=== PATIENT | male | born 1935 | race African-American/Black ===

== ENCOUNTER 2018-04-12 10:49 | Inpatient (IN) | payer OTHER ==
[~2018-04-12] VITALS: Ht 167.6 cm; Wt 85.3 kg
[2018-04-12] MEDS ORDERED: CEFTRIAXONE 1 G PREMIX 50 ML IV ONE ×2 (12:45→15:30)
[2018-04-12 15:35] LABS: BASOPHILS % 0.3 % (0.0-2.0); EOSINOPHILS % 0.9 % (0.0-5.0); HEMATOCRIT. 36.9 % (42.0-52.0); HEMOGLOBIN. 12.1 g/dL (14.0-18.0); MEAN CORPUSCULAR HEMOGLOBIN 27.5 pg (28.0-32.0); MEAN CORPUSCULAR VOLUME 83.8 fL (80.0-94.0); MONOCYTES % 8.3 % (2.0-8.0); NEUTROPHILS % 61.5 % (40.0-76.0); PLATELET 118 x1000/uL (130-400); RED CELL DISTRIBUTION WIDTH 15.1 % (11.6-14.6)
[2018-04-12 15:37] LABS: CHLORIDE 115 mEq/L (98-107)
[2018-04-12 15:42] LABS: INR 1.1; PARTIAL THROMBOPLASTIN TIME 26.5 sec (23.4-31.0); PROTHROMBIN TIME 10.7 sec (9.1-11.1)
[2018-04-12 15:43] LABS: CREATINE KINASE 436 IU/L (39-308)
[2018-04-12 15:47] LABS: CREATINE KINASE MB FRACTION 6.4 ng/mL (0.5-3.6)
[2018-04-12 17:03] LABS: CLARITY URINE CLOUDY (CLEAR); COLOR URINE YELLOW (YELLOW); KETONES URINE TRACE (NEGATIVE); LEUKOCYTE ESTERASE URINE 3+ (NEGATIVE); NITRITE URINE NEGATIVE (NEGATIVE); OCCULT BLOOD URINE 1+ (NEGATIVE); PROTEIN URINE 2+ (NEGATIVE); SPECIFIC GRAVITY URINE 1.013 (1.005-1.030); UROBILINOGEN URINE 0.2 E.U./dL (0.2-1.0)
[2018-04-12] MEDS ORDERED: ONDANSETRON HCL 4MG/2ML INJ IV PRN (17:45)
[2018-04-12] MEDS ORDERED: ACETAMINOPHEN 650MG SUPP PR PRN (17:45)
[2018-04-12] MEDS ORDERED: DIPHENHYDRAMINE 50MG/ML VIAL IV PRN (17:45)
[2018-04-12] MEDS ORDERED: IPRATROPIUM/ALBUTEROL 0.5-3(2.5)MG/3ML NEB INH PRN (17:45)
[2018-04-12] MEDS ORDERED: MAGNESIUM/ALUMINUM HYDROXIDE/SIMETHICONE 30ML UDC PO PRN (17:45)
[2018-04-12] MEDS ORDERED: HYDROCODONE/ACETAMINOPHEN 5/325MG TABLET PO PRN (17:45)
[2018-04-12] MEDS ORDERED: ACETAMINOPHEN 325MG TABLET PO PRN (17:45)
[2018-04-12 19:15] VITALS: BP 179/97
[2018-04-12 20:00] VITALS: BP 179/97
[2018-04-12] MEDS ORDERED: NA PHOS,M-B/NA PHOS,DI-BA ENEMA 118ML PR PRN (21:00)
[2018-04-12] MEDS: ENOXAPARIN 40MG/0.4ML SYR SUBCUT SCH (21:49)
[2018-04-12] MEDS: CLONIDINE 0.1MG TABLET PO PRN (21:49)
[2018-04-12] MEDS: DEXT 5%/0.45% NACL 1000ML 1,000 ML IV SCH (21:50)
[2018-04-13] VITALS: BP 122/70
[2018-04-13 07:42] LABS: BASOPHILS % 0.7 % (0.0-2.0); EOSINOPHILS % 2.1 % (0.0-5.0); HEMATOCRIT. 35.6 % (42.0-52.0); HEMOGLOBIN. 11.8 g/dL (14.0-18.0); LYMPHOCYTES % 37.3 % (20.0-50.0); MEAN CORPUSCULAR HEMOGLOBIN 27.5 pg (28.0-32.0); MEAN CORPUSCULAR VOLUME 83.3 fL (80.0-94.0); MEAN PLATELET VOLUME 8.2 fl (7.4-10.4); MONOCYTES % 9.1 % (2.0-8.0); NEUTROPHILS % 50.8 % (40.0-76.0); PLATELET 115 x1000/uL (130-400); RED BLOOD CELL COUNT 4.28 mill/uL (4.7-6.1); RED CELL DISTRIBUTION WIDTH 14.9 % (11.6-14.6)
[2018-04-13 08:00] VITALS: BP 178/78
[2018-04-13] MEDS: CLONIDINE 0.1MG TABLET PO PRN (08:06)
[2018-04-13 09:17] LABS: CHLORIDE 114 mEq/L (98-107)
[2018-04-13 09:27] LABS: LDL CHOLESTEROL 78 mg/dL (5-100)
[2018-04-13 09:28] LABS: T4 FREE 0.97 ng/dL (0.76-1.46)
[2018-04-13 09:47] LABS: HDL CHOLESTEROL 46 mg/dL (40-59)
[2018-04-13 12:00] VITALS: BP_SYST 150
[2018-04-13] MEDS ORDERED: CEFTRIAXONE 1 G PREMIX 50 ML IV SCH (13:00)
[2018-04-13] MEDS: DEXT 5%/0.45% NACL 1000ML 1,000 ML IV SCH (15:30)
[2018-04-13] MEDS ORDERED: LISI-604 MT (15:32)
[2018-04-13] MEDS ORDERED: TERA10CA4 MT (15:32)
[2018-04-13] MEDS ORDERED: IBUP-2030 MT (15:32)
[2018-04-13] MEDS ORDERED: LEVO75TA7 MT (15:32)
[2018-04-13] MEDS ORDERED: SIMV40TA5 MT (15:32)
[2018-04-13] MEDS ORDERED: FINA5TAB11 MT (15:32)
[2018-04-13] MEDS: FINASTERIDE 5MG TABLET PO SCH (15:42)
[2018-04-13 16:00] VITALS: BP 137/65
[2018-04-13 20:00] VITALS: BP_SYST 139; BP_SYST 163; BP_DIAS 55; BP_DIAS 74
[2018-04-13] MEDS: ATORVASTATIN CALCIUM 10MG TABLET PO SCH (21:00)
[2018-04-13] MEDS: TERAZOSIN HCL 5MG CAPSULE PO SCH (21:00)
[2018-04-13] MEDS: ENOXAPARIN 40MG/0.4ML SYR SUBCUT SCH (21:00)
[2018-04-14] VITALS (7 sets, daily range): BP systolic 140–154; BP diastolic 56–84
[2018-04-14] MEDS ORDERED: LEVOTHYROXINE SODIUM 75MCG TABLET PO SCH (07:10)
[2018-04-14] MEDS: FINASTERIDE 5MG TABLET PO SCH (08:44)
[2018-04-14] MEDS ORDERED: LISINOPRIL 20MG TABLET PO SCH (09:00)
[2018-04-14] MEDS: DEXT 5%/0.45% NACL 1000ML 1,000 ML IV SCH ×2 (11:30→14:41)
[2018-04-14] MEDS ORDERED: CEFTRIAXONE 1 G PREMIX 50 ML IV SCH (13:00)
[2018-04-14 16:19] LABS: HEMATOCRIT 36.5 % (42.0-52.0); MEAN CORPUSCULAR HEMOGLOBIN 27.6 pg (28.0-32.0); PLATELET 120 x1000/uL (130-400); RED BLOOD CELL COUNT 4.34 mill/uL (4.7-6.1); RED CELL DISTRIBUTION WIDTH 14.8 % (11.6-14.6)
[2018-04-14 16:27] LABS: CHLORIDE 111 mEq/L (98-107)
[2018-04-14] MEDS ORDERED: LEVOFLOXACIN 500MG TABLET PO SCH (20:00)
[2018-04-14] MEDS: ATORVASTATIN CALCIUM 10MG TABLET PO SCH (20:17)
[2018-04-14] MEDS: TERAZOSIN HCL 5MG CAPSULE PO SCH (20:17)
[2018-04-14] MEDS: ENOXAPARIN 40MG/0.4ML SYR SUBCUT SCH (20:18)
== END 2018-04-14 22:10 | DRG 291 ==
LOC: ER 10:49 → EDBEDREQSVC 16:23 → EDBEDREQ 16:23 → 8WST 16:23 → EDBEDREQ 16:26 → EDBEDREQSVC 16:26 → EDBEDREQ 16:27 → ENRESERV 16:29
PROVIDERS: ADMIT Internal Medicine; ATTEND Internal Medicine
DX: I13.0 Hypertensive heart and chronic kidney disease with heart failure and stage 1 through stage 4 chronic kidney disease, or unspecified chronic kidney disease (principal); G93.41 Metabolic encephalopathy; I50.43 Acute on chronic combined systolic (congestive) and diastolic (congestive) heart failure; N39.0 Urinary tract infection, site not specified; N17.9 Acute kidney failure, unspecified; E66.9 Obesity, unspecified; E86.0 Dehydration; R26.9 Unspecified abnormalities of gait and mobility; N18.9 Chronic kidney disease, unspecified; N40.1 Benign prostatic hyperplasia with lower urinary tract symptoms; D64.9 Anemia, unspecified; E03.9 Hypothyroidism, unspecified; E78.5 Hyperlipidemia, unspecified; F03.90 Unspecified dementia, unspecified severity, without behavioral disturbance, psychotic disturbance, mood disturbance, and anxiety; W18.30XA Fall on same level, unspecified, initial encounter; Y93.89 Activity, other specified; Z86.73 Personal history of transient ischemic attack (TIA), and cerebral infarction without residual deficits; Y92.89 Other specified places as the place of occurrence of the external cause; Y99.8 Other external cause status; Z68.30 Body mass index [BMI] 30.0-30.9, adult
CPT/HCPCS: 36415; 71045; 72100; 73521; 76770; 80048; 80061; 82550; 82553; 83605; 83735; 83880; 84145; 84153; 84439; 84443; 84484; 85027; 93005; 93306; 93970; 94640; 96365; 96367; 97162; 97530; 99285; C1893; J0696; J1650; G0103

== ENCOUNTER 2018-06-16 21:50 | Inpatient (IN) | payer OTHER ==
[~2018-06-16] VITALS: Ht 185.4 cm; Wt 91.6 kg
[~2018-06-16 21:50] MED LIST: FINA5TAB11 MT; IBUP-2030 MT; LEVO75TA7 MT; LISI-604 MT; SIMV40TA5 MT; TERA10CA4 MT
[2018-06-16] MEDS ORDERED: SODIUM CHLORIDE 0.9% 1,000 ML IV ONE (22:10)
[2018-06-16 23:24] LABS: BASOPHILS % 0.3 % (0.0-2.0); EOSINOPHILS % 0.3 % (0.0-5.0); HEMATOCRIT. 35.5 % (42.0-52.0); HEMOGLOBIN. 11.6 g/dL (14.0-18.0); LYMPHOCYTES % 27.5 % (20.0-50.0); MEAN CORPUSCULAR HEMOGLOBIN 27.4 pg (28.0-32.0); MEAN CORPUSCULAR VOLUME 83.8 fL (80.0-94.0); MEAN PLATELET VOLUME 8.5 fl (7.4-10.4); MONOCYTES % 7.2 % (2.0-8.0); NEUTROPHILS % 64.7 % (40.0-76.0); PLATELET 130 x1000/uL (130-400); RED BLOOD CELL COUNT 4.23 mill/uL (4.7-6.1); RED CELL DISTRIBUTION WIDTH 14.7 % (11.6-14.6)
[2018-06-16 23:33] LABS: INR 1.1; PARTIAL THROMBOPLASTIN TIME 27.3 sec (23.4-31.0); PROTHROMBIN TIME 10.9 sec (9.1-11.1)
[2018-06-16 23:35] LABS: CHLORIDE 106 mEq/L (98-107)
[2018-06-16 23:39] LABS: ETHANOL BLOOD < 10 mg/dL
[2018-06-16 23:58] LABS: CLARITY URINE CLEAR (CLEAR); COLOR URINE YELLOW (YELLOW); KETONES URINE TRACE (NEGATIVE); LEUKOCYTE ESTERASE URINE TRACE (NEGATIVE); NITRITE URINE NEGATIVE (NEGATIVE); OCCULT BLOOD URINE NEGATIVE (NEGATIVE); PROTEIN URINE TRACE (NEGATIVE); SPECIFIC GRAVITY URINE 1.018 (1.005-1.030); UROBILINOGEN URINE 0.2 E.U./dL (0.2-1.0)
[2018-06-17 00:41] LABS: *BARBITURATES SCREEN URINE NEGATIVE (NEGATIVE); *BENZODIAZEPINES SCREEN URINE NEGATIVE (NEGATIVE)
[2018-06-17 00:42] LABS: *AMPHETAMINES SCREEN URINE NEGATIVE (NEGATIVE); *COCAINE SCREEN URINE NEGATIVE (NEGATIVE); CANNABINOID URINE SCREEN NEGATIVE (NEGATIVE); METHADONE URINE SCREEN NEGATIVE (NEGATIVE); OPIATES URINE SCREEN NEGATIVE (NEGATIVE); PHENCYCLIDINE URINE SCREEN NEGATIVE (NEGATIVE)
[2018-06-17] MEDS ORDERED: SODIUM CHLORIDE 0.9% 1,000 ML IV ONE (01:00)
[2018-06-17 04:10] VITALS: BP 169/89
[2018-06-17] MEDS ORDERED: COM10 MT (05:24)
[2018-06-17] MEDS ORDERED: LORA-249 MT (05:24)
[2018-06-17] MEDS ORDERED: ROXANOL 20 MG/ML PO (05:24)
[2018-06-17] MEDS ORDERED: ACET-2178 MT (05:24)
[2018-06-17] MEDS ORDERED: BISA10SU62 RC (05:24)
[2018-06-17] MEDS ORDERED: HYOS0.124 SL (05:24)
[2018-06-17] MEDS ORDERED: PIPERACILLIN/TAZ 3.375G PREMIX 50 ML IV SCH (05:45)
[2018-06-17] MEDS ORDERED: MORPHINE SULFATE 4 MG/ML CPJ (NOT FOR IM USE) IV PRN (06:00)
[2018-06-17] MEDS ORDERED: IPRATROPIUM/ALBUTEROL 0.5-3(2.5)MG/3ML NEB HHN PRN (06:00)
[2018-06-17] MEDS ORDERED: MEDICATION NOT ON FORMULARY EA (Acetaminophen (Tylenol) 2 TAB) MT SCH (06:00)
[2018-06-17] MEDS ORDERED: MEDICATION NOT ON FORMULARY EA (Lorazepam (Ativan) 1 TAB) MT PRN (06:00)
[2018-06-17] MEDS ORDERED: PROCHLORPERAZINE MALEATE 10MG TABLET PO SCH (06:00)
[2018-06-17] MEDS ORDERED: BISACODYL RC SCH (06:00)
[2018-06-17] MEDS ORDERED: HYOSCYAMINE SULFATE SL PRN (06:00)
[2018-06-17] MEDS ORDERED: DEXTROSE 5% WATER 1,000 ML IV SCH (06:30)
[2018-06-17] MEDS ORDERED: LORAZEPAM 0.5MG TABLET PO PRN (06:30)
[2018-06-17] MEDS ORDERED: HYOSCYAMINE SULFATE 0.125 MG SL PRN (06:45)
[2018-06-17] MEDS ORDERED: HYOSCYAMINE SULFATE 0.125 MG PO PRN ×2 (06:45→07:12)
[2018-06-17] MEDS ORDERED: PROCHLORPERAZINE MALEATE 10MG TABLET PO PRN (06:45)
[2018-06-17] MEDS ORDERED: ACETAMINOPHEN 325MG TABLET PO PRN (06:45)
[2018-06-17] MEDS: LEVOTHYROXINE SODIUM 75MCG TABLET PO SCH (07:03)
[2018-06-17 08:00] VITALS: BP 108/75
[2018-06-17] MEDS: PIPERACILLIN/TAZ 3.375G PREMIX 50 ML IV SCH ×2 (08:06→17:33)
[2018-06-17] MEDS: ENOXAPARIN 40MG/0.4ML SYR SUBCUT SCH (08:07)
[2018-06-17] MEDS: FINASTERIDE 5MG TABLET PO SCH (08:27)
[2018-06-17] MEDS ORDERED: MEDICATION NOT ON FORMULARY EA (Finasteride 1 TAB) MT SCH (09:00)
[2018-06-17] MEDS ORDERED: MEDICATION NOT ON FORMULARY EA (Terazosin Hcl 1 CAP) MT SCH (09:00)
[2018-06-17] MEDS ORDERED: BISACODYL 10MG SUPP PR PRN (09:00)
[2018-06-17] MEDS: DEXT 5%/0.45% NACL 1000ML 1,000 ML IV SCH (13:22)
[2018-06-17 13:55] LABS: BG BASE EXCESS -2.3 mmol/L (-2.0-2.0); BG DEOXYHEMOGLOBIN 3.2 % (0.0-5.0); BG FRACTION INSPIRED OXYGEN 21; BG HCO3 ACT 21.7 mmol/L (22.0-26.0); BG METHEMOGLOBIN 0.1 % (0.0-1.5); BG OXYGEN SATURATION 96.8 % (92.0-98.5); BG OXYHEMOGLOBIN 96.7 % (94.0-97.0); BG PH 7.411 (7.350-7.450); BG PO2 88.5 mmHg (75.0-100.0); BG SAMPLE SITE RIGHT RADIAL; BG TOTAL HEMOGLOBIN 12.1 g/dL (12.0-18.0); BG VENT MODE ROOM AIR
[2018-06-17 16:00] VITALS: BP 144/74
[2018-06-17 16:30] LABS: HEMATOCRIT 37.2 % (42.0-52.0); HEMOGLOBIN 12.1 g/dL (14.0-18.0); MEAN CORPUSCULAR HEMOGLOBIN 27.4 pg (28.0-32.0); MEAN CORPUSCULAR VOLUME 84.7 fL (80.0-94.0); PLATELET 119 x1000/uL (130-400); RED CELL DISTRIBUTION WIDTH 15.1 % (11.6-14.6)
[2018-06-17 16:48] LABS: T4 FREE 1.04 ng/dL (0.76-1.46)
[2018-06-17 20:00] VITALS: BP 153/72
[2018-06-17] MEDS: TERAZOSIN HCL 5MG CAPSULE PO SCH (20:47)
[2018-06-17] MEDS: ATORVASTATIN CALCIUM 20MG TABLET PO SCH (20:47)
[2018-06-17] MEDS ORDERED: MEDICATION NOT ON FORMULARY EA (Simvastatin 1 TAB) MT SCH (21:00)
[2018-06-18 00:09] VITALS: BP 148/76
[2018-06-18] MEDS: PIPERACILLIN/TAZ 3.375G PREMIX 50 ML IV SCH ×4 (01:00→23:57)
[2018-06-18 04:02] VITALS: BP 140/88
[2018-06-18] MEDS: DEXT 5%/0.45% NACL 1000ML 1,000 ML IV SCH ×2 (05:25→22:54)
[2018-06-18] MEDS: LEVOTHYROXINE SODIUM 75MCG TABLET PO SCH (06:41)
[2018-06-18 08:00] VITALS: BP_SYST 127; BP_SYST 153; BP_DIAS 75; BP_DIAS 87
[2018-06-18] MEDS: FINASTERIDE 5MG TABLET PO SCH (09:59)
[2018-06-18] MEDS: ENOXAPARIN 40MG/0.4ML SYR SUBCUT SCH (09:59)
[2018-06-18] MEDS: ASPIRIN 81MG TABLET PO SCH (11:22)
[2018-06-18 12:00] VITALS: BP 107/58
[2018-06-18] MEDS ORDERED: LACTULOSE 20G/30ML UDC PO NR (14:00)
[2018-06-18 16:00] VITALS: BP 118/58
[2018-06-18 19:16] LABS: HEMATOCRIT 36.6 % (42.0-52.0); HEMOGLOBIN 12.1 g/dL (14.0-18.0); MEAN CORPUSCULAR HEMOGLOBIN 27.4 pg (28.0-32.0); MEAN CORPUSCULAR VOLUME 83.2 fL (80.0-94.0); PLATELET 114 x1000/uL (130-400); RED CELL DISTRIBUTION WIDTH 14.8 % (11.6-14.6)
[2018-06-18 20:20] VITALS: BP 136/76
[2018-06-18] MEDS: TERAZOSIN HCL 5MG CAPSULE PO SCH (20:28)
[2018-06-18] MEDS: ATORVASTATIN CALCIUM 20MG TABLET PO SCH (20:28)
[2018-06-19] VITALS: BP 110/55
[2018-06-19 04:00] VITALS: BP 105/58
[2018-06-19 06:13] LABS: HEMATOCRIT 30.9 % (42.0-52.0); HEMOGLOBIN 10.2 g/dL (14.0-18.0); MEAN CORPUSCULAR HEMOGLOBIN 27.5 pg (28.0-32.0); MEAN CORPUSCULAR VOLUME 83.6 fL (80.0-94.0); PLATELET 121 x1000/uL (130-400); RED CELL DISTRIBUTION WIDTH 14.3 % (11.6-14.6)
[2018-06-19] MEDS: LEVOTHYROXINE SODIUM 75MCG TABLET PO SCH (06:32)
[2018-06-19 08:08] VITALS: BP 106/64
[2018-06-19] MEDS: PIPERACILLIN/TAZ 3.375G PREMIX 50 ML IV SCH (09:04)
[2018-06-19] MEDS: FINASTERIDE 5MG TABLET PO SCH (09:05)
[2018-06-19] MEDS: ASPIRIN 81MG TABLET PO SCH (09:05)
[2018-06-19 12:22] VITALS: BP 127/82
== END 2018-06-19 14:38 | disposition hospice, home (50) | DRG 64 ==
LOC: ER 21:50 → ENRESERV 06-17 02:53 → 6WST 06-17 04:23
PROVIDERS: ADMIT Internal Medicine; ATTEND Internal Medicine
DX: I63.9 Cerebral infarction, unspecified (principal); G93.41 Metabolic encephalopathy; G93.40 Encephalopathy, unspecified; N17.9 Acute kidney failure, unspecified; N39.0 Urinary tract infection, site not specified; E72.20 Disorder of urea cycle metabolism, unspecified; N18.9 Chronic kidney disease, unspecified; E78.00 Pure hypercholesterolemia, unspecified; D63.8 Anemia in other chronic diseases classified elsewhere; F03.90 Unspecified dementia, unspecified severity, without behavioral disturbance, psychotic disturbance, mood disturbance, and anxiety; E78.5 Hyperlipidemia, unspecified; I12.9 Hypertensive chronic kidney disease with stage 1 through stage 4 chronic kidney disease, or unspecified chronic kidney disease; E03.9 Hypothyroidism, unspecified; D72.819 Decreased white blood cell count, unspecified; N40.0 Benign prostatic hyperplasia without lower urinary tract symptoms; D69.6 Thrombocytopenia, unspecified; Z86.73 Personal history of transient ischemic attack (TIA), and cerebral infarction without residual deficits
CPT/HCPCS: 36415; 36600; 70544; 70551; 71045; 80048; 80061; 80305; 82140; 82375; 82805; 82962; 83036; 83605; 84153; 84439; 84443; 84481; 84484; 85027; 86850; 86900; 92610; 93005; 93306; 93970; 96374; 99285; G0482; J1650; J2543; J3490; J7030; J7050; J7070; A4315; G0103